=== PATIENT | male | born 1990 ===

== ENCOUNTER → 2017-02-04 | Outpatient (CLI) | payer OTHER ==
--- NOTE | 2017-02-04 10:02 | DIAGNOSTIC IMAGING REPORT ---
LEFT THUMB 3 VIEWS HISTORY: INJURY OF LEFT THUMB COMPARISON: None. FINDINGS: There is no fracture or dislocation. Soft tissue swelling at the base of the thumb. No radiopaque foreign bodies. IMPRESSION: No fractures. Electronically signed by: Bassem Mcbride M.D. 02/04/2017 9:59 AM Dictated Date/Time: 02/04/2017 9:59 AM
== END | disposition home or self-care (01) ==
LOC: C.RDSM 08:00
PROVIDERS: ATTEND Physician Assistant
DX: S63.642A Sprain of metacarpophalangeal joint of left thumb, initial encounter (principal); X58.XXXA Exposure to other specified factors, initial encounter